=== PATIENT | male | born 1995 | race Caucasian/White ===

== ENCOUNTER 2019-06-09 19:45 | Emergency (ER) | payer OTHER ==
[~2019-06-09] VITALS: Ht 167.6 cm; Wt 94.0 kg
[2019-06-09 19:51] VITALS: Ht 167.6 cm; Wt 94.0 kg
[2019-06-09 21:37] VITALS: BP 136/80
== END 2019-06-09 21:39 | disposition home or self-care (01) ==
LOC: ED 19:45
DX: J02.9 Acute pharyngitis, unspecified (principal); M79.10 Myalgia, unspecified site; R50.9 Fever, unspecified
CPT/HCPCS: 86308; J1100